=== PATIENT | female | born 1985 | race Caucasian/White ===

== ENCOUNTER → 2020-03-13 10:55 | Outpatient (CLI) | payer OTHER, MEDICAID, SELFPAY | PROVIDERS: Referring Provider Otolaryngology; Visit Provider Otolaryngology | DX: U07.1 COVID-19 (principal) | CPT/HCPCS: 87635; U0005; U0003 ==

== ENCOUNTER → 2020-10-21 | Outpatient (CLI) | payer OTHER, MEDICAID, SELFPAY ==
[2020-10-21 18:08] LABS: Probe Check PASS; Specimen Processing Control PASS
== END | disposition home or self-care (01) ==
PROVIDERS: Referring Provider Otolaryngology; Visit Provider Otolaryngology
DX: Z20.822 Contact with and (suspected) exposure to COVID-19 (principal)
CPT/HCPCS: 87635; U0005; U0003

== ENCOUNTER → 2020-10-27 | Outpatient (CLI) | payer OTHER, MEDICAID, SELFPAY ==
--- NOTE | 2020-10-27 11:42 | TONS_PTH ---
PATIENT: JOVANNY WELSH LOC: [facility] U#:[id number] AGE/SX: 35/F ROOM: RE10/27/[address]: Dr. Ramiro Peterson MD : 1985 BED: DIS: 10/27/2020 SPEC #: [id number] RECD: 10/27/20 15:00 STATUS: JEMMA DIANNE #: [id number] DAVID: 10/27/20 11:[address]: Ramiro Peterson DEPT: SURGICAL PATHOLOGY RECD BY: Miladis Velazco ENTERED: 10/28/20 07:54 SP TYPE: TONSILS OTHR DR: DENZEL Tissues: Tonsil, NOS Procedures: Surgery Specimen Level III HEADER OPERATION: Tonsillectomy PRE-OP DIAGNOSIS: Tonsillitis TISSUE SUBMITTED: Bilateral tonsils, pin on right MICROSCOPIC DIAGNOSIS Bilateral tonsils, tonsillectomy: Reactive lymphoid hyperplasia, consistent with chronic tonsillitis. ORIANA:malinda 10/29/2020 MICROSCOPIC DESCRIPTION Slides are reviewed. GROSS DESCRIPTION Received is one container labeled with the patient's name and designated tonsils - pin on right are two tonsils that in aggregate weigh 11.5 gm. The right tonsil has a pin on it and measures 3 x 3 x 2 cm. The left tonsil measures 3.5 x 2 x 1.5 cm. Both tonsils are similar in appearance. The external surfaces are pink-tirado, smooth, glistening and somewhat lobulated. Focally they are hemorrhagic, granular and bear cautery artifact. Serial cross sections through the tonsils reveal normal tonsillar architecture. Sections are submitted in two cassettes as follows: 1 - right tonsil, 2 - left tonsil. / SJ:rg 10/28/20 TC:3 [facility]: [id number] x2
== END | disposition home or self-care (01) ==
LOC: LABSPEC 15:59
PROVIDERS: Visit Provider Otolaryngology
DX: J03.90 Acute tonsillitis, unspecified (principal)
CPT/HCPCS: 88304